=== PATIENT | female | born 1965 | race Caucasian/White ===

== ENCOUNTER 2016-11-20 13:22 | Observation (INO) | payer BC ==
[2016-11-20 14:18] LABS: Hematocrit 43 % (35-47); Hemoglobin 14.4 g/dl (12.0-16.0); Mean Corpuscular HGB Conc 33 g/dl (31-36); Mean Corpuscular Hemoglobin 29 pg (27-31); Mean Corpuscular Volume 87 fL (80-97); Mean Platelet Volume 9 um3 (7.4-10.4); Red Cell Distribution Width 13 % (10.5-15); White Blood Count 11.4 10^3/ul (3.5-10.8)
[2016-11-20 14:20] LABS: Urine Bilirubin Negative (Negative); Urine Glucose Negative (Negative); Urine Nitrite Negative (Negative)
--- NOTE | 2016-11-20 14:28 | RAD ---
Indication: Headache, loss of consciousness. Syncopal episode. Comparison: No relevant prior exams available on the [facility] [place] [facility] for comparison. Technique: Noncontrast CT vertex of skull through foramen magnum. Report: The sulci, ventricles, and basal cisterns are normal for age. Hernandez matter white matter differentiation is preserved without evidence for edema. No intra or extra axial hemorrhage, mass, or fluid collection detected. Unremarkable visualized orbital contents. Unremarkable calvarium and skull base. Unremarkable scalp. The visualized paranasal sinuses and mastoid air spaces are clear. IMPRESSION: Negative unenhanced head CT.
--- NOTE | 2016-11-20 14:29 | RAD ---
Indication: Syncopal episode. Exercise-induced asthma. Comparison: July 07, 2015 Technique: Upright AP 1350 hours Report: Clear lungs and pleural spaces. Negative for pneumothorax. The heart, pulmonary vasculature, and mediastinal contours are unremarkable. Unremarkable osseous structures and soft tissue contours. IMPRESSION: No evidence for acute intrathoracic disease.
[2016-11-20 15:21] LABS: TSH (Thyroid Stimulating Horm) 1.06 mcIU/mL (0.34-5.60)
[2016-11-20 15:26] LABS: Albumin 4.1 g/dL (3.2-5.2); BUN/Creatinine Ratio 15.9 (8-20); Calcium 9.3 mg/dL (8.6-10.3); EGFR African American 94.9 (>60); EGFR Non-African American 73.8 (>60); Globulin 2.5 g/dL (2-4); Magnesium 2.1 mg/dL (1.9-2.7); Potassium 3.7 mmol/L (3.5-5.0); Total Bilirubin 0.3 mg/dL (0.2-1.0); Total Protein 6.6 g/dL (6.4-8.9)
[2016-11-20] MEDS ORDERED: NS 0.9% 1000 ML* 1,000 ML IV ONE (15:53)
[2016-11-20] MEDS ORDERED: Ibuprofen TAB* 400 MG PO PRN (15:55)
[2016-11-20] MEDS ORDERED: Acetaminophen TAB* 325 MG PO PRN (15:55)
[2016-11-20] MEDS ORDERED: NS 0.9% 1000 ML* 1,000 ML IV SCH (16:00)
--- NOTE | 2016-11-20 23:15 | HP ---
CC: Dr. Janette Gerber * HISTORY AND PHYSICAL: DATE OF ADMISSION: 11/20/16 PRIMARY CARE PHYSICIAN: Dr. Janette Gerber. CHIEF COMPLAINT: "I passed out." HISTORY OF PRESENT ILLNESS: Ms. Snyder is a 51-year-old female with no past medical history, who presents to the hospital after a syncopal episode. The patient states she woke up this morning, states she ate a banana and some kettle corn, but did not have anything to drink. 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 They stopped at [facility] on the way and she smoked a cigarette en route, which she states often times make her feel lightheaded. She went into [facility]. She did not sit down inside, went straight to the counter, ordered the bagel for her before she could order one for herself, she states she felt the onset of dizziness. When asked to clarify, she had difficulty deciding whether it felt more like lightheadedness or room spinning, but she felt that perhaps it felt more like the room was spinning, states that next thing she knew, she woke up on the ground surrounded by strangers. She states that she was told she hit her head. She was not sure how long she was out for, but thinks it was probably less than a minute. There was no report of any seizure-like activity. She has no bowel or bladder incontinence. She denied any appreciating chest pain or shortness of breath; however, she states she was fairly sweaty when she woke up. She states she has episodes like this that happened probably 2 to 3 times a year. When she gets the sensation of dizziness every other time, she has been able to sit down and have a drink of water and the symptoms usually resolve on their own. She has never passed out _ ____ before. EMS was called and came to see her at [facility]. At that time, she refused to come to the emergency department, she instead went home with her . She reports a little bit of nausea over the next few hours. Her stepfather called and insisted that she come to the hospital. The patient has had some ongoing left knee pain that has been worked up as an outpatient. She has seen Orthopedics, is going to schedule to see her PCP, Dr. Gerber, again and get scheduled for an MRI. She has been taking over-the- counter analgesics for this. PAST MEDICAL HISTORY: None. PAST SURGICAL HISTORY: , tonsillectomy, cholecystectomy. HOME MEDICATIONS: 1. Pojg-jhs-doukpqg ibuprofen. 2. Mmdj-dcl-redhcap Tylenol. ALLERGIES: The patient reports no known drug allergies. FAMILY HISTORY: Significant for mother with breast cancer, father with prostate cancer. SOCIAL HISTORY: The patient smokes maybe a pack a week of cigarettes for about 30 years. She smokes marijuana occasionally including this morning. Denies any other drug use, states she may have a drink every month or so. REVIEW OF SYSTEMS: A 12-point review of systems is negative except for that as noted in the HPI. PHYSICAL EXAMINATION GENERAL: The patient is a middle-aged female, lying in bed, in no apparent distress. VITAL SIGNS: On admission temperature 98.0, heart rate of 93, respiratory rate of 16, O2 saturation 100% on room air, blood pressure 150/95. HEENT: Head, normocephalic and atraumatic. Eyes: Pupils are equal, round, and reactive to light and accommodation. Anicteric sclerae. ENT: Moist mucous membranes. No cervical adenopathy. Posterior oropharynx is clear. LUNGS: Clear to auscultation bilaterally. No wheezes, rales, or rhonchi. CARDIOVASCULAR: Regular rate and rhythm. S1 and S2 present. No murmurs, gallops, or rubs. ABDOMEN: Soft, obese, nontender, nondistended. Bowel sounds positive. EXTREMITIES: No cyanosis, clubbing, or edema. NEURO: The patient is alert and oriented x3. Cranial nerves II through XII grossly intact. Strength is 5/5 throughout bilateral upper and lower extremities. Sensation is intact and symmetric throughout. Wgybrw-ht-tgye testing is good. DIAGNOSTIC STUDIES/LAB DATA: White blood cell count of 11.4, hematocrit of 43 , and platelets of 207. Sodium 138, potassium 3.7, chloride of 106, carbon dioxide 25, BUN of 13, creatinine of 0.82, glucose of 158, lactic acid of 1.8. LFTs are within normal limits. Troponin 0.00. TSH 1.76. UA negative. Chest x-ray personally reviewed shows no acute disease. CT of head shows no acute changes. EKG personally reviewed shows normal sinus rhythm, left atrial enlargement, flattened T waves in the anterolateral patrick, prolonged QTc at 558. No old EKGs to compare to. ASSESSMENT AND PLAN: Syncope in a 51-year-old female with no past medical history. 1. Syncope. Seems like symptoms may have been due to orthostatic hypotension or possibly vasovagal, does not seem like seizure, unlikely arrhythmia, although the patient does have some abnormal EKG findings including prolonged QTc. The patient has not received any fluids here in the emergency department. I will check orthostatic vital signs now and give the patient normal saline bolus and start her on 100 cc an hour overnight, monitor the patient on telemetry, trend her troponins, and repeat EKG in the morning. 2. Left knee pain. The patient has been worked up by Orthopedics. She is scheduled for an MRI, Tylenol, ibuprofen p.r.n. 3. DVT prophylaxis. Low risk, ambulate. 4. Code status. The patient is full code. TIME SPENT: Total time spent on this admission 40 minutes with over half the time spent [id number] with the patient in counseling and coordinating care. [id number]/[facility] #: [id number] KATY
[2016-11-21] MEDS ORDERED: hydrALAZINE IV* 20 MG/ML VIAL IV PRN (02:14)
[2016-11-21 07:41] VITALS: BP 156/103
--- NOTE | 2016-11-21 08:03 | DCNOTE ---
Patient seen this morning. Did not sleep well, aggravated about her night. Has mild headache. States she has had intermittent high BPs in the past, states they are never "persistent". No further syncopal episodes. Has had a few times she has gone to the bathroom and had some mild light-headedness once she got there and sat down but nothing like yesterday. On exam, RRR, s1 and s2 present, no m/g/r, abd soft, NTND, BS+, lungs CTA B/L, no w/r/r, no LE edema No events on tele. QTc normalized on EKG. Orthostatics negative. BPs remain elevated but patient would prefer not to start a medication at this time. She says she has an appointment with her PCP tomorrow and would prefer to have her BP rechecked then. Will d/c home.
--- NOTE | 2016-11-21 11:56 | DS ---
CC: Dr. Mari Hunter DISCHARGE SUMMARY: DATE OF ADMISSION: 11/20/16 DATE OF DISCHARGE: 11/21/16 PRIMARY CARE PHYSICIAN: Dr. Mari Hunter. PRINCIPAL DISCHARGE DIAGNOSIS: 1. Syncope. 2. Hypertension. STUDIES DONE DURING HOSPITALIZATION: Chest x-ray impression: No evidence for acute intrathoracic d isease. CT of the brain, impression: Negative unenhanced CT of the brain. DISCHARGE MEDICATION REGIMEN: 1. Ibuprofen 800 mg by mouth q.8 hours as needed for pain. 2. Albuterol 108 mcg inhaled every 4 hours as needed for shortness of breath and wheezing. 3. Tylenol 325 mg by mouth every 4 hours. HISTORY OF PRESENT ILLNESS AND HOSPITAL SUMMARY: Please see my full history and physical for full d etails. Briefly, Ms. Snyder is a 51-year-old female who presented to the hospital after a syncopa l episode. This happened after a walk in the morning in the heat in the setting of decreased p.o. i ntake in the morning as well as some marijuana and tobacco use, which often causes some lightheadedn ess. The patient syncopized at the counter of [email or web address], struck her head on the ground, seems like she was not out for very long. She was brought to the hospital, monitored overnight. Orthostatics checked here were negative. She was given IV fluids overnight. Troponins were trended and remaine d negative. She had no events on telemetry. Patient did have an initial EKG with a prolonged QTC; however, repeat EKG the following morning had normalized. The patient was noted to have significantly elevated blood pressures throughout the hospitalization with systolics reaching the 180s and diastolics in the low 100s. Patient states she has had intermit tent high blood pressures in the past, although she states they have never been persistently high. She has never been on medications before. She would prefer not to start a blood pressure medication at this time. She has a PCP appointment tomorrow and would like to have her PCP recheck her pressu re there to decide if medication is absolutely necessary. The patient will be discharged home. She has been instructed in the instructions to be mindful of these symptoms as they have happened in th e past without syncope and if she feels lightheaded or dizzy, to try to find a seat or sit down on t he ground, so she can avoid a syncopal episode. TIME SPENT: Total time spent on this discharge, 35 minutes. This is a summary of the hospitalization. Please see the full medical record for further details. [id number]/[facility] #: [id number]
--- NOTE | 2016-11-22 00:43 | ED ---
Cristy Dupont Alok, scribed for Yehuda Saez MD on 11/20/16 at 1412 . Syncope/Near Syncope - HPI Summary HPI Summary: 51F presents to the ED for syncope episode earlier today. Pt was reportedly felling dizziness described as lightheadedness and room-spinning while in line to order a bagel when she lost consciousness. Pt also noted diaphoresis. Witnesses state she hit the back of her head upon losing consciousness. Pt had not eaten prior to LOC. Pt denies ETOH use today. Pt refused transport by EMS to ED but then later arrived on her own due to nauseousness and concern for concussion. Pt notes mild occipital BRIONES. Pt states she feels lightheadedness currently without room-spinning. Pt notes left knee pain ongoing for the last month. Pt denies neck pain or CP. Pt denies vomiting or diarrhea. Pt has h/o similar syncope events usually aggravated by lack of food, heat, ETOH, and tobacco. - History Of Current Complaint Chief Complaint: EDSyncope Time Seen by Provider: 11/20/16 13:45 Hx Obtained From: Patient Onset/Duration: Sudden Onset, Lasting Minutes, Still Present - lightheadedness Timing: Minutes Context: Witnessed Activity At Onset: At Rest Associated Head Trauma: Yes Aggravating Factor(s): Other - lack of food, heat Alleviating Factor(s): Nothing Associated Signs And Symptoms: Dizzy, Headache, Lightheadedness - Allergies/Home Medications Allergies/Adverse Reactions: Allergies Allergy/AdvReac Type Severity Reaction Status Date / Time grass Allergy Intermediate Eyes Uncoded 05/24/15 12:07 Itchy/Swollen/Red/Watery DUST,MOLD,CATS,DOGS Allergy Unknown Unknown Uncoded 05/24/15 12:07 Reaction Details PMH/Surg Hx/FS Hx/Imm Hx Endocrine/Hematology History: Denies: Hx Diabetes, Hx Thyroid Disease Cardiovascular History: Denies: Hx Hypertension Respiratory History: Reports: Hx Asthma - EXERCISE INDUCED Denies: Hx Chronic Obstructive Pulmonary Disease (COPD) GI History: Denies: Hx Ulcer - Cancer History Hx Chemotherapy: No Hx Radiation Therapy: No - Surgical History Surgery Procedure, Year, and Place: TONSILLECTOMY 1970. C SECTION 2002. CHOLECYSTECTOMY 2009 Infectious Disease History: No Infectious Disease History: Denies: Hx Clostridium Difficile, Hx Hepatitis, Hx Human Immunodeficiency Virus (HIV), Hx of Known/Suspected MRSA, Hx Shingles, Hx Tuberculosis, History Other Infectious Disease, Traveled Outside the [place] in Last 30 Days - Family History Known Family History: Negative: Cardiac Disease - Social History Occupation: Employed Full-time Lives: With Family Alcohol Use: Occasionally Substance Use Type: Reports: None Smoking Status (MU): Former Smoker Review of Systems Positive: Skin Diaphoresis. Negative: Fever, Chills Negative: Erythema Negative: Sore Throat Negative: Chest Pain Negative: Shortness Of Breath, Cough Positive: Nausea. Negative: Abdominal Pain, Vomiting, Diarrhea Negative: dysuria, hematuria Positive: Other - Left knee pain. Negative: Neck pain. Negative: Myalgia, Edema Negative: Rash Neurological: Other - Dizziness, lightheadedness, Room-spinning sensation Positive: Headache All Other Systems Reviewed And Are Negative: Yes Physical Exam - Summary Physical Exam Summary: Constitutional: Well-developed, Well-nourished, Alert. (-) Distressed Skin: Warm, Dry HENT: Normocephalic; Atraumatic Eyes: Conjunctiva normal Neck: Musculoskeletal ROM normal neck. (-) JVD, (-) Stridor, (-) Tracheal deviation Cardio: Rhythm regular, rate normal, Heart sounds normal; Intact distal pulses; The pedal pulses are 2+ and symmetric. Radial pulses are 2+ and symmetric. (-) Murmur Pulmonary/Chest wall: Effort normal. (-) Respiratory distress, (-) Wheezes, (-) Rales Abd: Soft, (-) Tenderness, (-) Distension, (-) Guarding, (-) Rebound Musculoskeletal: (-) Edema Lymph: (-) Cervical adenopathy Neuro: Alert, Oriented x3 Psych: Mood and affect Normal Triage Information Reviewed: Yes Vital Signs On Initial Exam: Initial Vitals Temp Pulse Resp BP Pulse Ox 98.0 F 93 16 150/95 100 11/20/16 13:28 11/20/16 13:28 11/20/16 13:28 11/20/16 13:28 11/20/16 13:28 Vital Signs Reviewed: Yes Diagnostics - Vital Signs Vital Signs Temp Pulse Resp BP Pulse Ox 11/20/16 13:31 98.5 F 88 18 150/95 100 11/20/16 13:28 98.0 F 93 16 150/95 100 - Laboratory Result Diagrams: 11/20/16 14:07 06/11/17 14:07 Lab Statement: Any lab studies that have been ordered have been reviewed, and results considered in the medical decision making process. - Radiology CXR Xray Interpretation: Positive (See Comments) - IMPRESSION: No evidence for acute intrathoracic disease. Radiology Interpretation Completed By: Radiologist - CT Brain CT CT Interpretation: Positive (See Comments) - IMPRESSION: Negative unenhanced head CT. CT Interpretation Completed By: Radiologist - EKG 1404 Cardiac Rate: Other Rate - 81 bpm EKG Interpretation: No STEMI. Diffuse T-wave flattening Course/Dx - Diagnoses Provider Diagnoses: Syncope, Dizziness, Concussion, EKG abnormality - Physician Notifications Discussed Care of Patient With: Jerson Camacho - Will admit pt Time Discussed With Above Provider: 15:25 Discharge - Discharge Plan Condition: Stable Disposition: ADMITTED TO [facility] Referrals: Janette Gerber MD [Primary Care Provider] - The documentation as recorded by the Cristy rodriguez Alok accurately reflects the service I personally performed and the decisions made by , Yehuda Saez MD.
== END 2016-11-21 09:10 | disposition home or self-care (01) ==
LOC: ED 13:22 → MEDTELE 15:24
PROVIDERS: ADMIT Hospitalist; ATTEND Hospitalist
DX: R55 Syncope and collapse (principal); I10 Essential (primary) hypertension; S06.0X1A Concussion with loss of consciousness of 30 minutes or less, initial encounter; R42 Dizziness and giddiness; R51 Headache; Z87.891 Personal history of nicotine dependence; X58.XXXA Exposure to other specified factors, initial encounter; Y93.9 Activity, unspecified; Y92.9 Unspecified place or not applicable
CPT/HCPCS: 36415; 70450; 71010; 80053; 81003; 83605; 83735; 84443; 84484; 85025; 93005; 96374; 99283; A9270-GY; G0378

== ENCOUNTER 2017-06-12 20:33 | Emergency (ER) | payer BC ==
[2017-06-12 20:45] VITALS: BP 150/83
[2017-06-12] MEDS ORDERED: Ibuprofen TAB* 400 MG PO ONE (20:47)
--- NOTE | 2017-06-12 20:47 | UC ---
Respiratory Complaint HPI - HPI Summary HPI Summary: Pt presents with fever, body aches, fatigue, and headache that began yesterday. She tells me that she did not get her flu shot this year. She has been taking tylenol for fever and general discomfort, but has not taken any this afternoon/ evening because she when she came here she wanted to know what her "real temperature" was. Denies sick contacts or recent illness. Denies ST, cough, SOB , chest pain, abdominal pain, N/V/D/C. - History of Current Complaint Chief Complaint: UCGeneralIllness Stated Complaint: FLU SYMPTOMS Time Seen by Provider: 06/12/17 20:46 Hx Obtained From: Patient Hx Last Menstrual Period: 05/30/12 Onset/Duration: Gradual Onset Severity Initially: Mild Severity Currently: Moderate Pain Intensity: 8 Pain Scale Used: 0-10 Numeric - Allergies/Home Medications Allergies/Adverse Reactions: Allergies Allergy/AdvReac Type Severity Reaction Status Date / Time grass Allergy Intermediate Eyes Uncoded 06/12/17 20:45 Itchy/Swollen/Red/Watery DUST,MOLD,CATS,DOGS Allergy Unknown Unknown Uncoded 06/12/17 20:45 Reaction Details PMH/Surg Hx/FS Hx/Imm Hx Previously Healthy: Yes - Surgical History Surgical History: Yes Surgery Procedure, Year, and Place: TONSILLECTOMY 1970. C SECTION 2002. CHOLECYSTECTOMY 2009 - Family History Known Family History: Negative: Cardiac Disease - Social History Occupation: Employed Full-time Lives: With Family Alcohol Use: Occasionally Alcohol Amount: once Substance Use Type: Marijuana Smoking Status (MU): Former Smoker Type: Cigarettes Amount Used/How Often: pack per week Review of Systems Constitutional: Fever, Chills, Fatigue, Other - Body aches Skin: Negative Eyes: Negative ENT: Negative Respiratory: Negative Cardiovascular: Negative Gastrointestinal: Negative Neurological: Headache All Other Systems Reviewed And Are Negative: Yes Physical Exam Triage Information Reviewed: Yes Appearance: Well-Nourished, Ill-Appearing Vital Signs: Initial Vital Signs Temp 102.8 F 06/12/17 20:40 Pulse 94 06/12/17 20:40 Resp 19 06/12/17 20:40 BP 150/83 06/12/17 20:40 Pulse Ox 97 06/12/17 20:40 Vital Signs Reviewed: Yes Eyes: Positive: Conjunctiva Clear. Negative: Conjunctiva Inflamed, Discharge ENT: Positive: Hearing grossly normal, Pharynx normal, TMs normal, Uvula midline. Negative: Pharyngeal erythema, Nasal congestion, Nasal drainage, TM bulging, TM dull, TM red, Tonsillar swelling, Tonsillar exudate, Hoarse voice, Sinus tenderness Neck: Positive: Supple, Nontender, No Lymphadenopathy Respiratory: Positive: Chest non-tender, Lungs clear, Normal breath sounds, No respiratory distress, No accessory muscle use Cardiovascular: Positive: RRR, No Murmur, Pulses Normal Abdomen Description: Positive: Nontender, No Organomegaly, Soft. Negative: CVA Tenderness (R), CVA Tenderness (L), Distended, Guarding Bowel Sounds: Positive: Present Neurological: Positive: Fatigued Psychological: Positive: Age Appropriate Behavior Skin: Negative: rashes UC Diagnostic Evaluation - Laboratory O2 Sat by Pulse Oximetry: 97 Respiratory Course/Dx - Course Course Of Treatment: POC flu A positive. Treat with tamiflu BID for 5 days. She was given ibuprofen 400mg and Tamiflu 75mg once in the clinic tonight. 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 Rest. Fluids. And tylenol/ibuprofen prn fevers and discomfort. - Differential Dx/Diagnosis Differential Diagnosis/HQI/PQRI: Asthma, Bronchitis, Influenza, Lower Resp Infection, Sinusitis Provider Diagnoses: Influenza A. Body aches. Fatigue. Headache Discharge - Discharge Plan Condition: Stable Disposition: HOME Prescriptions: Oseltamivir CAP* [Tamiflu CAP*] 75 mg PO BID #10 cap Patient Education Materials: Influenza (ED) Referrals: Mari Hunter MD [Primary Care Provider] - Additional Instructions: If you develop a fever, shortness of breath, chest pain, new or worsening symptoms - please call your PCP or go to the ED. Your blood pressure was high at todays visit. Please see your primary provider within 4 weeks for recheck and re-evaluation. 1) Rest, wash your hands, and drink plenty of fluids! 2) May alternate tylenol with ibuprofen for fevers and discomfort. 3) Please avoid any immunocompromised individuals, such as those with cancer or undergoing chemotherapy.
[2017-06-12] MEDS ORDERED: Oseltamivir CAP* 75 MG PO ONE (21:07)
== END 2017-06-12 21:18 | disposition home or self-care (01) ==
LOC: UCEAST 20:33
DX: J11.1 Influenza due to unidentified influenza virus with other respiratory manifestations (principal); M79.1 Myalgia; R53.83 Other fatigue; R51 Headache; Z90.49 Acquired absence of other specified parts of digestive tract; F12.90 Cannabis use, unspecified, uncomplicated; Z87.891 Personal history of nicotine dependence
CPT/HCPCS: 87502; 99212; A9270-GY; G0463

== ENCOUNTER 2017-07-23 20:32 | Emergency (ER) | payer BC ==
[2017-07-23 21:20] VITALS: BP 150/98
--- NOTE | 2017-07-23 21:35 | UC ---
FLU HPI - HPI Summary HPI Summary: 52 y/o female presents to the urgent care c/o nausea, vomiting, body aches, BRIONES and fever since last night. Pt has taking Tylenol to alleviate symptoms. BRIONES is 8 /10. Pt states she had 1 episode of vomiting last night and today she has felt nausea all day. LMP: Pt denies SOB, cough, chest pain, abdominal pain, diarrhea. - History of Current Complaint Chief Complaint: UCGeneralIllness Stated Complaint: VOMITING,FEVER Time Seen by Provider: 07/23/17 21:34 Hx Obtained From: Patient Hx Last Menstrual Period: 05/30/12 ?: No Onset/Duration: Gradual Onset, Lasting Days - 1 day, Still Present Severity Currently: Moderate Severity Initially: Mild Pain Intensity: 8 Pain Scale Used: 0-10 Numeric Associated Signs & Symptoms: Positive: Fever, Myalgia, Headache, Vomiting - Risk Factors Influenza Risk Factors: Negative - Allergy/Home Medications Allergies/Adverse Reactions: Allergies Allergy/AdvReac Type Severity Reaction Status Date / Time grass Allergy Intermediate Eyes Uncoded 07/23/17 21:11 Itchy/Swollen/Red/Watery DUST,MOLD,CATS,DOGS Allergy Unknown Unknown Uncoded 07/23/17 21:11 Reaction Details Home Medications: Home Medications Acetaminophen TAB* [Tylenol TAB*] 975 mg PO Q4H PRN 07/23/17 [History Confirmed 07/23/17] PMH/Surg Hx/FS Hx/Imm Hx Previously Healthy: Yes Cardiovascular History: Hypertension - diet control Respiratory History: Asthma - Surgical History Surgical History: Yes Surgery Procedure, Year, and Place: TONSILLECTOMY 1970. C SECTION 2002. CHOLECYSTECTOMY 2009 - Family History Known Family History: Positive: Hypertension Negative: Cardiac Disease - Social History Occupation: Employed Full-time Lives: With Family Alcohol Use: Occasionally Alcohol Amount: once Substance Use Type: None Smoking Status (MU): Light Every Day Tobacco Smoker Type: Cigarettes Amount Used/How Often: pack per week Review of Systems Constitutional: Fever, Chills, Fatigue Skin: Negative Eyes: Negative ENT: Nasal Discharge, Sinus Congestion Respiratory: Negative Cardiovascular: Negative Gastrointestinal: Vomiting, Nausea Genitourinary: Negative Motor: Negative Neurovascular: Negative Musculoskeletal: Negative Neurological: Headache Psychological: Negative Is Patient Immunocompromised?: No All Other Systems Reviewed And Are Negative: Yes Physical Exam Triage Information Reviewed: Yes Vital Signs: Initial Vital Signs Temp 99.8 F 07/23/17 21:13 Pulse 86 07/23/17 21:13 Resp 18 07/23/17 21:13 BP 150/98 07/23/17 21:13 Pulse Ox 98 07/23/17 21:13 - Additional Comments VITAL SIGNS: Reviewed. GENERAL: Patient is a well developed and nourished female who is sitting comfortable in the examining table. Patient is not in any acute respiratory distress. HEAD AND FACE: No signs of trauma. No ecchymosis, hematomas or skull depressions. No sinus tenderness. edematous erythematous nasal mucosa with yellowish discharge, EYES: PERRLA, EOMI x 2, No injected conjunctiva, clear watery eyes, no nystagmus. No photophobia. EARS: Hearing grossly intact. Ear canals and tympanic membranes are within normal limits. MOUTH: Positive pharynx with erythema, no exudates,no palatal petechiae. no B/L tonsillar enlargement Uvula in midline. NECK: Supple, trachea is midline, Positive anterior cervical lymphadenopathy, no JVD, no carotid bruit, no c-spine tenderness, neck with full ROM. No meningeal signs, no Kernig's or brudzinskis signs. CHEST: Symmetric, no tenderness at palpation LUNGS: Clear to auscultation bilaterally. No wheezing or crackles. CVS: Regular rate and rhythm, S1 and S2 present, no murmurs or gallops appreciated. ABDOMEN: Soft, non-tender. No signs of distention. No rebound no guarding, and no masses palpated. Bowel sounds are normal. EXTREMITIES: FROM in all major joints, no edema, no cyanosis or clubbing. NEURO: Alert and oriented x 3. No acute neurological deficits. Speech is normal and follows commands. SKIN: Dry and warm Flu Course/Dx - Course Course Of Treatment: 52 y/o female presents to the urgent care c/o nausea, vomiting, body aches, BRIONES and fever since last night. Pt has taking Tylenol to alleviate symptoms. BRIONES is 8/10. Pt states she had 1 episode of vomiting last night and today she has felt nausea all day. Pt denies SOB, cough, chest pain, abdominal pain, diarrhea.Hx obtained. Pt w/ viral syndrome on examination. Zofran PO given at the clinic to alleviate nausea. Medication given by Nurse. Pt tolerated well medication. Rapid strep ordered, result: negative.Influenza A &B ordered: result: Negative . Pt ibuprofen PO and Zofran PO to alleviates symptoms. Advised on hand washing. Pt advised to rest, increase fluid intake, eat well and avoid strenuous exercise. If symptoms do not improve or worsen advised to return to the urgent care or f/u with her PCP for further evaluation and treatment. Pt's BP is elevated today advised to decrease salt in diet, monitor BP and f/u with PCP for further management. Pt understood and agreed with plan of care. - Differential Dx/Diagnosis Differential Diagnosis/HQI/PQRI: Bronchitis, Influenza, Upper Respiratory Infection Provider Diagnoses: 1- viral syndrome. 2-Nausea and vomiting. 3-Uncontrolled HTN Discharge - Discharge Plan Condition: Stable Disposition: HOME Prescriptions: Ibuprofen TAB* [Motrin TAB* 800 MG] 800 mg PO Q6H PRN #20 tab PRN Reason: Fever Ondansetron ODT TAB* [Zofran 4 MG Odt TAB*] 4 mg PO Q6H PRN #12 tab.odt PRN Reason: Nausea Patient Education Materials: Acute Nausea and Vomiting (ED), Viral Syndrome (ED ), Low-Sodium Diet (ED) Referrals: Mari Hunter MD [Primary Care Provider] - 3 Days Additional Instructions: 1-Please take ibuprofen PO q6-8hrs prn as instructed after meals to alleviate fever, Headache, pain and swelling. Increase fluid intake, eat well, rest and avoid strenuous exercise. 2- Take Zofran PO as directed to alleviated Nausea and vomiting. 3-If symptoms do not improve or worsen please return to the urgent care or f/u with your PCP 2-3 days for further evaluation and treatment. 4-Your BP is elevated today. please decrease salt in your diet, monitor BP and if it continues to be elevated please f/u with your PCP for further management
[2017-07-23] MEDS ORDERED: Ondansetron ODT TAB* 4 MG PO ONE (21:47)
== END 2017-07-23 22:47 | disposition home or self-care (01) ==
LOC: UCEAST 20:32
DX: B34.9 Viral infection, unspecified (principal); R11.2 Nausea with vomiting, unspecified; I10 Essential (primary) hypertension
CPT/HCPCS: 87502; 99212; A9270-GY; G0463

== ENCOUNTER 2018-07-11 08:52 | Emergency (ER) | payer BC ==
[2018-07-11 09:13] VITALS: BP 144/97
[2018-07-11 09:43] LABS: Influenza A Molecular NEGATIVE (Negative); Influenza B Molecular NEGATIVE (Negative)
--- NOTE | 2018-07-11 09:54 | UC ---
Respiratory Complaint HPI - HPI Summary HPI Summary: The patient is a 53-year-old female with a 24-48 hour history of fever chills myalgias headache and cough. She has a history of exercise-induced asthma and states she frequently gets pneumonia. She suspects she has been exposed to the flu in the past few weeks. He denies any chest pain or shortness of breath. - History of Current Complaint Chief Complaint: UCGeneralIllness Stated Complaint: FEVER FLU LIKE SYMPTOMS Time Seen by Provider: 07/11/18 09:38 Hx Obtained From: Patient Hx Last Menstrual Period: menapause Onset/Duration: Gradual Onset, Lasting Hours Timing: Constant Severity Initially: Moderate Severity Currently: Moderate Pain Intensity: 0 Pain Scale Used: 0-10 Numeric Character: Cough: Nonproductive Aggravating Factors: Nothing Associated Signs And Symptoms: Positive: URI - Allergies/Home Medications Allergies/Adverse Reactions: Allergies Allergy/AdvReac Type Severity Reaction Status Date / Time grass Allergy Intermediate Eyes Uncoded 07/23/17 21:11 Itchy/Swollen/Red/Watery DUST,MOLD,CATS,DOGS Allergy Unknown Unknown Uncoded 07/23/17 21:11 Reaction Details Home Medications: Home Medications D-Methorphan/PE/Acetaminophen [Tylenol Cold Multi-Symp Caplet] 1 tab PO SEE INSTRUCTIONS 07/11/18 [History Confirmed 07/11/18] PMH/Surg Hx/FS Hx/Imm Hx Previously Healthy: Yes Respiratory History: Asthma, Pneumonia - Surgical History Surgical History: Yes Surgery Procedure, Year, and Place: TONSILLECTOMY 1970. C SECTION 2002. CHOLECYSTECTOMY 2009 - Family History Known Family History: Positive: Hypertension Negative: Cardiac Disease - Social History Alcohol Use: Occasionally Alcohol Amount: once Substance Use Type: None Smoking Status (MU): Light Every Day Tobacco Smoker Type: Cigarettes Amount Used/How Often: pack per week Review of Systems All Other Systems Reviewed And Are Negative: Yes Constitutional: Positive: Fever, Chills, Fatigue Skin: Positive: Negative Eyes: Positive: Negative ENT: Positive: Negative Respiratory: Positive: Cough Cardiovascular: Positive: Negative Gastrointestinal: Positive: Negative Genitourinary: Positive: Negative Motor: Positive: Negative Neurovascular: Positive: Negative Musculoskeletal: Positive: Myalgia Neurological: Positive: Negative Psychological: Positive: Anxious Physical Exam Triage Information Reviewed: Yes Appearance: Well-Appearing, No Pain Distress, Well-Nourished Vital Signs: Initial Vital Signs Temp 99.5 F 07/11/18 09:05 Pulse 82 07/11/18 09:05 Resp 18 07/11/18 09:05 BP 144/97 07/11/18 09:05 Pulse Ox 97 07/11/18 09:05 Vital Signs Reviewed: Yes Eyes: Positive: Conjunctiva Clear ENT: Positive: Hearing grossly normal. Negative: Nasal congestion, Nasal drainage, Tonsillar exudate, Trismus, Muffled voice, Hoarse voice Neck: Positive: Supple, Nontender Respiratory: Positive: Lungs clear, Normal breath sounds, No respiratory distress, No accessory muscle use Cardiovascular: Positive: RRR, No Murmur Musculoskeletal: Positive: ROM Intact, No Edema Neurological: Positive: Alert Psychological Exam: Normal Skin Exam: Normal UC Diagnostic Evaluation - Laboratory O2 Sat by Pulse Oximetry: 97 - normal/not hypoxic Diagnostic Studies Comment: influenza (-) Respiratory Course/Dx - Differential Dx/Diagnosis Provider Diagnosis: Influenza-like illness Discharge - Sign-Out/Discharge Documenting (check all that apply): Patient Departure All imaging exams completed and their final reports reviewed: No Studies - Discharge Plan Condition: Stable Disposition: HOME Prescriptions: Oseltamivir CAP* [Tamiflu CAP*] 75 mg PO BID #10 cap Patient Education Materials: Influenza (ED) Referrals: Mari Hunter MD [Primary Care Provider] - 2 Weeks (your BP was elevated here. Probably due to your illness. I suggest recheck in 2-12 weeks) Additional Instructions: Despite the negative flu test I would like to treat you for the flu rest fluids tylenol or advil if need recheck for worsening symptoms - Billing Disposition and Condition Condition: STABLE Disposition: Home
== END 2018-07-11 10:03 | disposition home or self-care (01) ==
LOC: UCEAST 08:52
DX: J11.1 Influenza due to unidentified influenza virus with other respiratory manifestations (principal); J45.909 Unspecified asthma, uncomplicated; F17.210 Nicotine dependence, cigarettes, uncomplicated; Z91.09 Other allergy status, other than to drugs and biological substances
CPT/HCPCS: 99212; G0463

== ENCOUNTER 2019-03-12 19:47 | Emergency (ER) | payer BC ==
--- NOTE | 2019-03-12 20:11 | UC ---
Lower Extremity/Ankle HPI - HPI Summary HPI Summary: 53 yo female presents with LEFT heel pain. She tells me that for the past several weeks she has noticed an aching pain to the back of her left heel at her achilles. Over the last 3-4 days she has been doing increased moving and lifting at work and has noticed increased pain to the area. Pain is worse with ambulation and after being on her feet all day. Pain is better with rest and elevation. She denies specific injury, numbness, or tingling. - History of Current Complaint Chief Complaint: UCLowerExtremity Stated Complaint: LEFT ACHILLES PAIN Time Seen by Provider: 03/12/19 20:10 Hx Obtained From: Patient Hx Last Menstrual Period: menapause Onset/Duration: Gradual Onset Severity Initially: Moderate Severity Currently: Severe Pain Intensity: 7 Pain Scale Used: 0-10 Numeric - Allergies/Home Medications Allergies/Adverse Reactions: Allergies Allergy/AdvReac Type Severity Reaction Status Date / Time grass Allergy Intermediate Eyes Uncoded 03/12/19 20:09 Itchy/Swollen/Red/Watery DUST,MOLD,CATS,DOGS Allergy Unknown Unknown Uncoded 03/12/19 20:09 Reaction Details Home Medications: Home Medications NK [No Home Medications Reported] 03/12/19 [History Confirmed 03/12/19] PMH/Surg Hx/FS Hx/Imm Hx - Additional Past Medical History Additional PMH: None - Surgical History Surgical History: Yes Surgery Procedure, Year, and Place: TONSILLECTOMY 1970. C SECTION 2002. CHOLECYSTECTOMY 2009 - Family History Known Family History: Positive: Hypertension Negative: Cardiac Disease - Social History Occupation: Employed Full-time Lives: With Family Alcohol Use: Occasionally Alcohol Amount: once Substance Use Type: None Smoking Status (MU): Light Every Day Tobacco Smoker Type: Cigarettes Amount Used/How Often: pack per week Review of Systems All Other Systems Reviewed And Are Negative: No Constitutional: Positive: Negative Skin: Positive: Negative Respiratory: Positive: Negative Cardiovascular: Positive: Negative Neurovascular: Positive: Negative Musculoskeletal: Positive: Other: - Left achilles pain Neurological: Positive: Negative Psychological: Positive: Negative Physical Exam - Summary Physical Exam Summary: GENERAL: NAD. WDWN. No pain distress. SKIN: No rashes, sores, lesions, or open wounds. CHEST: No accessory muscle use. Breathing comfortably and in no distress. CV: Pulses intact PT and DP. Cap refill <2seconds MSK: LEFT FOOT: TTP about achilles insertion without bulge appreciated. FROM at left ankle and foot. Strength 5/5. No edema or obvious bony deformities. No medial or lateral malleoli pain NEURO: Alert. Sensations intact and symmetric B/L LEs PSYCH: Age appropriate behavior. Triage Information Reviewed: Yes Vital Signs: Initial Vital Signs Temp 98.1 F 03/12/19 20: Pulse 68 03/12/19 20:01 Resp 16 03/12/19 20:01 BP 154/103 03/12/19 20:01 Pulse Ox 98 03/12/19 20:01 Vital Signs Reviewed: Yes Lower Extremity Course/Dx - Course Course Of Treatment: Suspect achilles tendinitis. Advised to rest, ice, and elevate her foot. Will place her in a CAM boot - recommended this for at least 1 week to decrease inflammation and then try an OTC shoe insert for support. If symptoms persist - recommend scheduling an appt with Orthopedics for possible custom shoe inserts - Differential Dx/Diagnosis Provider Diagnosis: Left Achilles tendinitis Discharge ED - Sign-Out/Discharge Documenting (check all that apply): Patient Departure All imaging exams completed and their final reports reviewed: No Studies - Discharge Plan Condition: Stable Disposition: HOME Patient Education Materials: Achilles Tendinitis (ED) Referrals: King Johnson MD [Medical Doctor] - If Needed [facility]IAN REFERRAL [Outside] - As Soon As Possible Additional Instructions: If you develop a fever, shortness of breath, chest pain, new or worsening symptoms - please call your PCP or go to the ED immediately. Your blood pressure was high at todays visit. Please see your primary provider within 4 weeks for recheck and re-evaluation. 1) I recommend that you stay off your feet as much as possible 2) Use the CAM boot while active and on your feet for at least a week to decrease inflammation of your tendon 3) If your symptoms persist - I recommend that you see Orthopedics at the number below. You may call them to schedule an appointment - Billing Disposition and Condition Condition: STABLE Disposition: Home
[2019-03-12 20:41] VITALS: BP 160/108
== END 2019-03-12 20:35 | disposition home or self-care (01) ==
LOC: UCEAST 19:47
DX: M76.62 Achilles tendinitis, left leg (principal); F17.210 Nicotine dependence, cigarettes, uncomplicated; Z91.09 Other allergy status, other than to drugs and biological substances
CPT/HCPCS: 99212; G0463